=== PATIENT | female | born 1985 | race Caucasian/White ===

== ENCOUNTER 2017-09-27 17:47 | Inpatient (IN) | payer BC ==
[~2017-09-27] VITALS: Ht 170.2 cm; Wt 94.7 kg
[2017-09-27 18:50] LABS: BASOPHILS 0.5 % (0-2); EOSINOPHILS 2.3 % (0-7); HEMATOCRIT 45.2 % (36.0-48.0); HEMOGLOBIN 15.1 g/dL (12-16); LYMPHOCYTES 41.9 % (15-50); MCH 28.9 pg (26.0-34.0); MCHC 33.4 g/dL (31.0-37.0); MCV 86.4 fL (80.0-100.0); MEAN PLATELET VOLUME 9.2 fL (7.4-10.4); MONOCYTES 8.7 % (2-11); NEUTROPHILS 46.6 % (40-80); PLATELET COUNT 248 10x3/uL (130-400); RBC 5.23 10x6/uL (4.00-5.40); RDW 15.4 % (11.5-14.5); WBC 6.1 10x3/uL (4.8-10.8)
[2017-09-27 19:04] LABS: HCG SERUM NEGATIVE (NEGATIVE)
[2017-09-27 19:53] LABS: ALBUMIN 3.8 g/dL (3.4-5.0); BILIRUBIN - TOTAL 0.37 mg/dL (0.2-1.3); CALCIUM 8.8 mg/dL (8.5-10.1); CARBON DIOXIDE 26.6 mmol/L (21.0-32.0); POTASSIUM - SERUM 3.6 mmol/L (3.5-5.1); PROTEIN - SERUM 6.5 g/dL (6.4-8.2)
[2017-09-28] VITALS (7 sets, daily range): BP systolic 99–117; BP diastolic 56–70; Ht 170.2 cm; Wt 94.7 kg
[2017-09-28] MEDS ORDERED: PHENTERMINE HCL (00:07)
[2017-09-28] MEDS ORDERED: PHENTERMINE HCL30 MG PO (00:08)
[2017-09-28] MEDS ORDERED: IBUPROFEN800 MG PO (00:09)
[2017-09-28] MEDS ORDERED: PHENTERMINE HCL 30 MG (03:36)
[2017-09-28 05:18] LABS: BASOPHILS 0.2 % (0-2); EOSINOPHILS 0 % (0-7); IMMATURE GRANULOCYTES 0.2 % (0-5); MCH 28.6 pg (26.0-34.0); MCHC 32.6 g/dL (31.0-37.0); MCV 87.8 fL (80.0-100.0); MEAN PLATELET VOLUME 9.6 fL (7.4-10.4); MONOCYTES 1.8 % (2-11); NEUTROPHILS 80.8 % (40-80); PLATELET COUNT 278 10x3/uL (130-400); RDW 15.4 % (11.5-14.5)
[2017-09-28 05:25] LABS: ALBUMIN 3.8 g/dL (3.4-5.0); BILIRUBIN - TOTAL 0.2 mg/dL (0.2-1.3); CALCIUM 9.1 mg/dL (8.5-10.1); CARBON DIOXIDE 26.7 mmol/L (21.0-32.0); PROTEIN - SERUM 6.9 g/dL (6.4-8.2)
[2017-09-28 05:36] LABS: POTASSIUM - SERUM 4.7 mmol/L (3.5-5.1)
[2017-09-28 15:38] LABS: APPEARANCE CLEAR (CLEAR); BILIRUBIN NEGATIVE (NEGATIVE); COLOR YELLOW (YELLOW); GLUCOSE NEGATIVE (NEGATIVE); KETONE NEGATIVE (NEGATIVE); NITRITE NEGATIVE (NEGATIVE); PROTEIN NEGATIVE (NEGATIVE); SPECIFIC GRAVITY 1.015 (1.005-1.020); UROBILINOGEN NORMAL (NORMAL)
[2017-09-28 15:41] LABS: BACTERIA FEW /hpf (NONE SEEN); RED CELLS - URINE 0-5 /hpf (0-5)
[2017-09-28 15:43] LABS: HCG URINE NEGATIVE (NEGATIVE)
[2017-09-29] VITALS: BP 96/51
[2017-09-29 04:00] VITALS: BP 101/57
[2017-09-29 04:55] LABS: BASOPHILS 0 % (0-2); EOSINOPHILS 0 % (0-7); HEMATOCRIT 40.4 % (36.0-48.0); HEMOGLOBIN 13.3 g/dL (12-16); IMMATURE GRANULOCYTES 0.2 % (0-5); LYMPHOCYTES 8.6 % (15-50); MCH 28.7 pg (26.0-34.0); MCHC 32.9 g/dL (31.0-37.0); MCV 87.3 fL (80.0-100.0); MEAN PLATELET VOLUME 9.1 fL (7.4-10.4); MONOCYTES 2.3 % (2-11); NEUTROPHILS 88.9 % (40-80); PLATELET COUNT 247 10x3/uL (130-400); RBC 4.63 10x6/uL (4.00-5.40); RDW 15.5 % (11.5-14.5)
[2017-09-29 05:15] LABS: ALBUMIN 3.3 g/dL (3.4-5.0); ALKALINE PHOSPHATASE 56 U/L (46-116); ALT (SGPT) 51 U/L (10-68); BILIRUBIN - TOTAL 0.27 mg/dL (0.2-1.3); CALC OSMOLALITY 279 mosm/kg (275-300); CALCIUM 8.5 mg/dL (8.5-10.1); CARBON DIOXIDE 23.8 mmol/L (21.0-32.0); CHLORIDE - SERUM 106 mmol/L (98-107); GLUCOSE 135 mg/dL (74-106); POTASSIUM - SERUM 4.1 mmol/L (3.5-5.1); PROTEIN - SERUM 6.3 g/dL (6.4-8.2); SODIUM 139 mmol/L (136-145); UREA NITROGEN 12 mg/dL (7-18)
[2017-09-29 05:17] LABS: CREATININE - SERUM 0.7 mg/dL (0.6-1.3); eGFR NON AFRICAN AMERICAN > 90 mL/min (90-120)
[2017-09-29 09:56] VITALS: BP 118/71
[2017-09-29 12:38] VITALS: BP 105/65
[2017-09-29 16:45] VITALS: BP 120/71
[2017-09-29 20:00] VITALS: BP 114/67
[2017-09-30] VITALS: BP 118/59
[2017-09-30 04:00] VITALS: BP 115/62
[2017-09-30 06:15] LABS: BASOPHILS 0.1 % (0-2); EOSINOPHILS 0 % (0-7); HEMATOCRIT 41.1 % (36.0-48.0); HEMOGLOBIN 13.3 g/dL (12-16); IMMATURE GRANULOCYTES 0.3 % (0-5); LYMPHOCYTES 10.8 % (15-50); MCH 28.5 pg (26.0-34.0); MCHC 32.4 g/dL (31.0-37.0); MEAN PLATELET VOLUME 9.1 fL (7.4-10.4); NEUTROPHILS 83.8 % (40-80); PLATELET COUNT 274 10x3/uL (130-400); RBC 4.67 10x6/uL (4.00-5.40); RDW 15.7 % (11.5-14.5); WBC 15.8 10x3/uL (4.8-10.8)
[2017-09-30 06:41] LABS: ALBUMIN 3.5 g/dL (3.4-5.0); ALKALINE PHOSPHATASE 55 U/L (46-116); ALT (SGPT) 43 U/L (10-68); BILIRUBIN - TOTAL 0.31 mg/dL (0.2-1.3); CALC OSMOLALITY 279 mosm/kg (275-300); CALCIUM 9.2 mg/dL (8.5-10.1); CARBON DIOXIDE 27.3 mmol/L (21.0-32.0); CHLORIDE - SERUM 104 mmol/L (98-107); CREATININE - SERUM 0.8 mg/dL (0.6-1.3); GLUCOSE 115 mg/dL (74-106); POTASSIUM - SERUM 4.2 mmol/L (3.5-5.1); PROTEIN - SERUM 6.7 g/dL (6.4-8.2); SODIUM 139 mmol/L (136-145); UREA NITROGEN 15 mg/dL (7-18); eGFR NON AFRICAN AMERICAN 87 mL/min (90-120)
[2017-09-30 08:44] VITALS: BP 111/63
[2017-09-30 16:36] VITALS: BP 124/74
[2017-09-30 20:00] VITALS: BP 143/73
[2017-10-01] VITALS: BP 113/69
[2017-10-01 04:50] LABS: BASOPHILS 0.1 % (0-2); EOSINOPHILS 0 % (0-7); HEMATOCRIT 43.8 % (36.0-48.0); IMMATURE GRANULOCYTES 0.3 % (0-5); LYMPHOCYTES 11.2 % (15-50); MCH 28.1 pg (26.0-34.0); MEAN PLATELET VOLUME 9.5 fL (7.4-10.4); MONOCYTES 4.5 % (2-11); NEUTROPHILS 83.9 % (40-80); PLATELET COUNT 310 10x3/uL (130-400); RBC 4.98 10x6/uL (4.00-5.40); RDW 15.6 % (11.5-14.5); WBC 16.5 10x3/uL (4.8-10.8)
[2017-10-01 05:15] LABS: ALBUMIN 3.6 g/dL (3.4-5.0); ALKALINE PHOSPHATASE 63 U/L (46-116); ALT (SGPT) 40 U/L (10-68); BILIRUBIN - TOTAL 0.28 mg/dL (0.2-1.3); CALC OSMOLALITY 278 mosm/kg (275-300); CALCIUM 9.2 mg/dL (8.5-10.1); CARBON DIOXIDE 24.7 mmol/L (21.0-32.0); CHLORIDE - SERUM 103 mmol/L (98-107); CREATININE - SERUM 0.8 mg/dL (0.6-1.3); GLUCOSE 119 mg/dL (74-106); POTASSIUM - SERUM 4.2 mmol/L (3.5-5.1); SODIUM 138 mmol/L (136-145); UREA NITROGEN 17 mg/dL (7-18); eGFR NON AFRICAN AMERICAN 87 mL/min (90-120)
[2017-10-01 06:00] VITALS: BP 120/77
[2017-10-01 08:04] VITALS: BP 121/75
[2017-10-01 12:07] VITALS: BP 119/65
[2017-10-01] MEDS ORDERED: SKELAXIN800 MG PO (12:54)
[2017-10-01] MEDS ORDERED: HYDROCODONE-APA1 TAB PO (12:55)
[2017-10-01] MEDS ORDERED: STERAPRED 5MG 125 MG PO (12:57)
== END 2017-10-01 16:21 | disposition home or self-care (01) | DRG 551 ==
LOC: D.ER 17:47 → OBSVTIME 22:51 → D.MS 22:51
PROVIDERS: Emergency Medicine; Family Medicine
DX: M51.27 Other intervertebral disc displacement, lumbosacral region (principal); R53.2 Functional quadriplegia; S33.6XXA Sprain of sacroiliac joint, initial encounter; X58.XXXA Exposure to other specified factors, initial encounter; M51.37 Other intervertebral disc degeneration, lumbosacral region; W18.30XA Fall on same level, unspecified, initial encounter; Y93.89 Activity, other specified